=== PATIENT | male | born 1935 | race Caucasian/White ===

== ENCOUNTER → 2021-01-08 | Outpatient (CLI) | payer MEDICARE ==
[~2021-01-08] MED LIST: ALDACTONE 25MG25 MG PO; AMLODIPINE BESY10 MG PO; CLONIDINE1 EACH TD; COREG 25MG TAB25 MG PO; FUROSEMIDE40 MG PO; HYDRALAZINE HCL50 MG PO; LEVOTHYROXINE50 MCG PO; MULTI-VITAMIN1 EACH PO; OCUVITE ADULT1 EAC1 PO
== END ==
LOC: SLEEP 10:38
DX: G47.33 Obstructive sleep apnea (adult) (pediatric) (principal)
CPT/HCPCS: 95810

== ENCOUNTER → 2021-03-06 | Outpatient (CLI) | payer MEDICARE ==
[2021-03-06 13:25] LABS: RED BLOOD COUNT 4.62 M/UL (4.20-5.50)
== END ==
LOC: LAB 12:44
PROVIDERS: Internal Medicine Nephrology
DX: N04.2 Nephrotic syndrome with diffuse membranous glomerulonephritis (principal); Z20.822 Contact with and (suspected) exposure to COVID-19
CPT/HCPCS: 36415; 85027; 85610; 85730; U0003

== ENCOUNTER → 2021-03-09 | Outpatient (CLI) | payer MEDICARE | LOC: CT 06:45 | PROVIDERS: Internal Medicine Nephrology | DX: I12.9 Hypertensive chronic kidney disease with stage 1 through stage 4 chronic kidney disease, or unspecified chronic kidney disease (principal); N18.31 Chronic kidney disease, stage 3a; F01.50 Vascular dementia, unspecified severity, without behavioral disturbance, psychotic disturbance, mood disturbance, and anxiety; N17.9 Acute kidney failure, unspecified; N99.820 Postprocedural hemorrhage of a genitourinary system organ or structure following a genitourinary system procedure; M31.8 Other specified necrotizing vasculopathies; M32.14 Glomerular disease in systemic lupus erythematosus; E03.9 Hypothyroidism, unspecified; E78.5 Hyperlipidemia, unspecified; N52.2 Drug-induced erectile dysfunction; R60.9 Edema, unspecified; R31.9 Hematuria, unspecified; R80.9 Proteinuria, unspecified; I69.359 Hemiplegia and hemiparesis following cerebral infarction affecting unspecified side; Z79.899 Other long term (current) drug therapy; Z79.890 Hormone replacement therapy | CPT/HCPCS: 36415; 77012; 80053; 88305; 88313; 88346; 88348; J0360 ==